=== PATIENT | female | born 1985 | race American Indian/Alaskan Native ===

== ENCOUNTER 2018-12-27 18:51 | Emergency (ER) | payer SELFPAY ==
--- NOTE | 2018-12-27 19:22 | Event Note ---
ED Screening Note Date of service: 12/27/18 Time: 19:19 ED Screening Note: Pt complains of HAs x 5 days denies hx of head trauma states pain is intermittent and frontal seen at [facility] today and given a shot of toradol and sent home with imitrex states headache not improved +nausea and dizziness denies hx of similar headaches This initial assessment/diagnostic orders/clinical plan/treatment(s) is/are subject to change based on patients health status, clinical progression and re-assessment by fellow clinical providers in the ED. Further treatment and workup at subsequent clinical providers discretion. Patient/guardian urged not to elope from the ED as their condition may be serious if not clinically assessed and managed. Initial orders include: labs CT meds
[2018-12-27 19:23] VITALS: BP 133/93
[2018-12-27] MEDS ORDERED: diphenhydrAMINE 50 MG/ML VIAL IV ONE (19:24)
[2018-12-27] MEDS ORDERED: BUTALB/ACETAMINOPHEN/CAFFEINE TAB PO ONE (19:24)
[2018-12-27] MEDS ORDERED: dexAMETHasone 20 MG/5 ML VIAL IV ONE (19:24)
[2018-12-27] MEDS ORDERED: METOCLOPRAMIDE 10 MG/2 ML INJ IV ONE (19:24)
[2018-12-27 20:37] LABS: Basophils % (Auto) 0.4 % (0.0-1.8); Eosinophils % (Auto) 0.3 % (0.0-4.3); Hemoglobin 13.4 gm/dl (10.1-14.3); Lymphocytes # (Auto) 0.9 K/mm3 (1.2-5.4); Lymphocytes % (Auto) 23.7 % (13.4-35.0); Mean Corpuscular HGB Conc 34 % (30-34); Mean Corpuscular Volume 86 fl (79-97); Monocytes # (Auto) 0.4 K/mm3 (0.0-0.8); Monocytes % (Auto) 9.8 % (0.0-7.3); Platelet Count 250 K/mm3 (140-440); Red Blood Count 4.64 M/mm3 (3.65-5.03)
[2018-12-27 21:02] LABS: BUN/Creatinine Ratio 13; Blood Urea Nitrogen 9 mg/dL (7-17); Calcium 8.9 mg/dL (8.4-10.2); Hemolysis Index 169
[2018-12-27 21:06] LABS: Alanine Aminotransferase 19 units/L (7-56)
--- NOTE | 2018-12-27 21:59 | Cat Scan Report ---
CT HEAD WITHOUT CONTRAST INDICATION / CLINICAL INFORMATION: abnormal headache x 4 days, frontal. TECHNIQUE: All CT scans at this location are performed using CT dose reduction for ALARA by means of automated e xposure control. COMPARISON: None available. FINDINGS: HEMORRHAGE: None. EXTRA-AXIAL SPACES: Normal in size and morphology for the patient's age. VENTRICULAR SYSTEM: Normal in size and morphology for the patient's age. CEREBRAL PARENCHYMA: No significant abnormality. No acute territorial infarct. MIDLINE SHIFT OR HERNIATION: None. CEREBELLUM / BRAINSTEM: No significant abnormality. ORBITS: Normal as visualized. SOFT TISSUES of HEAD: No significant abnormality. CALVARIUM: No significant abnormality. PARANASAL SINUSES / MASTOID AIR CELLS: Normal as visualized. ADDITIONAL FINDINGS: None. IMPRESSION: 1. No acute intracranial abnormality. Signer Name: Clint Ordonez MD Signed: 12/27/2018 9:55 PM Workstation Name: [id number]
--- NOTE | 2018-12-27 23:50 | Emergency Department Report ---
ED Headache HPI - General Chief Complaint: Headache Stated Complaint: HEADACHE Time Seen by Provider: 12/27/18 19:19 Source: patient Exam Limitations: no limitations - History of Present Illness Initial Comments: 33-year-old -[place] female department complaining of no throbbing headache since Tuesday which was 5 days ago. She didn't take [id number] medications with minimal relief. 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 denies: facial pain, fever/chills, flushing, loss of consciousness, nausea/vomiting, nasal congestion, rash, seizures, sinus infection, stiff neck, weakness Allergies/Adverse Reactions: Allergies No Known Allergies Allergy (Verified 12/27/15 08:46) Home Medications: Ambulatory Orders Sulfamethoxazole/Trimethoprim [Bactrim DS TAB] 1 each PO BID #14 tablet 12/27/15 ED Review of Systems ROS: Stated complaint: HEADACHE Other details as noted in HPI Comment: All other systems reviewed and negative ED Past Medical Hx - Past Medical History Previous Medical History?: No - Surgical History Past Surgical History?: No - Social History Smoking Status: Never Smoker Substance Use Type: None - Medications Home Medications: Home Medications Medication Instructions Recorded Confirmed Last Taken Type Sulfamethoxazole/Trimethoprim 1 each PO BID #14 tablet 12/27/15 Unknown Rx [Bactrim DS TAB] ED Physical Exam - General Limitations: No Limitations General appearance: alert, in no apparent distress - Head Head exam: Present: atraumatic, normocephalic - Eye Eye exam: Present: normal appearance, PERRL, EOMI Pupils: Present: normal accommodation - ENT ENT exam: Present: normal exam, normal orophraynx, mucous membranes moist, TM's normal bilaterally - Neck Neck exam: Present: normal inspection - Respiratory Respiratory exam: Present: normal lung sounds bilaterally. Absent: respiratory distress - Cardiovascular Cardiovascular Exam: Present: regular rate, normal rhythm. Absent: systolic murmur, diastolic murmur, rubs, gallop - GI/Abdominal GI/Abdominal exam: Present: soft, normal bowel sounds - Extremities Exam Extremities exam: Present: normal inspection - Back Exam Back exam: Present: normal inspection - Neurological Exam Neurological exam: Present: alert, oriented X3 - Psychiatric Psychiatric exam: Present: normal affect, normal mood - Skin Skin exam: Present: warm, dry, intact, normal color. Absent: rash ED Course Vital Signs 12/27/18 12/27/18 18:54 21:16 Temperature 99.0 F Pulse Rate 87 Respiratory 16 18 Rate Blood Pressure 133/93 O2 Sat by Pulse 100 Oximetry - Reevaluation(s) Reevaluation #1: 12/27/18 23:47 She reports near complete resolution of her headache ED Medical Decision Making - Lab Data Result diagrams: 12/27/18 20:04 12/27/18 20:04 - Radiology Data Radiology results: report reviewed [facility] [address] [place] [address] Cat Scan Report Signed Patient: TALYA SIFUENTES MR#: [id number] : 1985 Acct:[id number] Age/Sex: 33 / F ADM Date: 12/27/18 Loc: ED Attending Dr: Ordering Physician: MANOJ CENTENO Date of Service: 12/27/18 Procedure(s): CT head/brain wo con Accession Number(s): [id number] cc: MANOJ JACOBO CT HEAD WITHOUT CONTRAST INDICATION / CLINICAL INFORMATION: abnormal headache x 4 days, frontal. TECHNIQUE: All CT scans at this location are performed using CT dose reduction for ALARA by means of automated exposure control. COMPARISON: None available. FINDINGS: HEMORRHAGE: None. EXTRA-AXIAL SPACES: Normal in size and morphology for the patient's age. VENTRICULAR SYSTEM: Normal in size and morphology for the patient's age. CEREBRAL PARENCHYMA: No significant abnormality. No acute territorial infarct. MIDLINE SHIFT OR HERNIATION: None. CEREBELLUM / BRAINSTEM: No significant abnormality. ORBITS: Normal as visualized. SOFT TISSUES of HEAD: No significant abnormality. CALVARIUM: No significant abnormality. PARANASAL SINUSES / MASTOID AIR CELLS: Normal as visualized. ADDITIONAL FINDINGS: None. IMPRESSION: 1. No acute intracranial abnormality. Signer Name: Clint Ordonez MD Signed: 12/27/2018 9:55 PM Workstation Name: [id number] Critical care attestation.: If time is entered above; I have spent that time in minutes in the direct care of this critically ill patient, excluding procedure time. ED Disposition Clinical Impression: Cephalgia Disposition: DC-01 TO HOME OR SELFCARE Is pt being admited?: No Does the pt Need Aspirin: No Condition: Stable Instructions: Acute Headache (ED) Referrals: [facility] [Provider Group] - 3-5 Days
== END 2018-12-28 00:10 | disposition home or self-care (01) ==
LOC: ED 18:51
DX: R51 Headache (principal)
CPT/HCPCS: 36415; 70450; 80053; 84703; 85025; 96374; 96375; 99284; J1100; J1200; J2765